=== PATIENT | male | born 1955 | race Native Hawaiian/Other Pacific Islander ===

== ENCOUNTER 2018-07-07 08:41 | Day surgery (SDC) | payer BC ==
[~2018-07-07 08:41] MED LIST: Buffered Lidocaine 0.9% SYRIN* 5 ML/SYR SYRINGE INTRADERM ONE
[2018-07-07] MEDS ORDERED: Midazolam* 1 MG/ML 2 ML VIAL (2 MG) ONE (10:03)
[2018-07-07] MEDS ORDERED: hydrALAZINE IV* 20 MG/ML VIAL ONE (10:22)
[2018-07-07 10:36] VITALS: BP 130/87
[2018-07-07] MEDS ORDERED: Tetracaine 0.5% OPTH.SOL 4 ML* 1 DROP BTL ONE (11:28)
[2018-07-07] MEDS ORDERED: acetaZOLAMIDE TAB* 250 MG ONE (11:28)
[2018-07-07] MEDS ORDERED: Lidocaine 1%* 5 ML VIAL ONE (11:28)
[2018-07-07] MEDS ORDERED: Cyclopentolate 1% OPTH.SOL* 2 ML BTL ONE (11:28)
[2018-07-07] MEDS ORDERED: Tropicamide 1% OPTH.SOL* BTL ONE (11:28)
[2018-07-07] MEDS ORDERED: Povidone Iodine 5% OPTH* 30 ML BTL ONE (11:28)
[2018-07-07] MEDS ORDERED: Neomycin/Polymy/Dex OPHTH.OIN* 3.5 GM ONE (11:28)
[2018-07-07] MEDS ORDERED: Ketorolac 0.5% OPHTH (NF) 0.5 % 5 ML BTL ONE (11:28)
--- NOTE | 2018-07-07 11:35 | OP ---
DATE OF OPERATION: 07/07/2018 - [facility] DATE OF : 1955. SURGEON: Dwayne Schroeder MD ANESTHESIA: Monitored anesthesia care. PREOPERATIVE DIAGNOSIS: Cataract, left eye. POSTOPERATIVE DIAGNOSIS: Cataract, left eye. OPERATIVE PROCEDURE: Extracapsular cataract extraction of the left eye with intraocular lens implant. IMPLANT: SN60WF 17.0 diopter lens to the left eye. COMPLICATIONS: None. DESCRIPTION OF PROCEDURE: The patient was given phenylephrine 2.5 % and cyclopentolate 1% eye drops to the operative eye in the preoperative area. The patient was taken to the operating room where a time-out was taken to identify the correct patient, site, and side of surgery. The patient's left eye was prepped and draped in the usual sterile fashion with 5% Betadine. A second time- out was taken to verify the correct patient, side, and site of surgery, as well as the correct lens implant. A lid speculum was placed to the left eye. A 1mm paracentesis blade was used to make a clear corneal incision. Preservative-free 1% lidocaine was injected into the anterior chamber. DisCoVisc was then injected into the anterior chamber. A 2.75 mm keratome blade was used to make a triplanar incision. A cystotome initiated a capsulorrhexis, which was completed with Utrata forceps in a continuous and curvilinear manner. Hydrodissection of the lens was performed with BSS on a cannula. The lens could be spun in a capsular bag. The phacoemulsification handpiece was used with a divide-and- conquer technique to remove the nucleus. The I/A handpiece then removed the residual cortical lens material. DisCoVisc was injected to inflate the capsular bag. The planned SN60WF 17.0 diopter lens was injected into the capsular bag. The residual DisCoVisc was removed from the eye with the I/A handpiece. The corneal incisions were hydrated and no leaks occurred at physiologic pressure around 20 mmHg per palpation. The lid speculum was removed and drapes were removed. Maxitrol ointment was placed to the surface of the operative eye. An adhesive patch and shield was then placed on the operative eye. The patient was taken to the postoperative area in stable condition. [id number]/[facility] #: [id number] [facility] [place]
== END 2018-07-07 10:39 | disposition home or self-care (01) ==
LOC: OREAST 08:41
PROVIDERS: ATTEND Student in an Organized Health Care Education/Training Program
DX: H25.12 Age-related nuclear cataract, left eye (principal); K21.9 Gastro-esophageal reflux disease without esophagitis; J30.9 Allergic rhinitis, unspecified; N40.0 Benign prostatic hyperplasia without lower urinary tract symptoms; I10 Essential (primary) hypertension
CPT/HCPCS: A9270-GY; J0360; J2250; V2632

== ENCOUNTER → 2018-07-14 08:32 | Day surgery (SDC) | payer BC ==
[~2018-07-14 08:32] MED LIST changes: +Acetaminophen TAB* 325 MG PO PRN; -Buffered Lidocaine 0.9% SYRIN* 5 ML/SYR SYRINGE INTRADERM ONE; +Cyclopentolate 1% OPTH.SOL* 2 ML BTL ONE; +Ketorolac 0.5% OPHTH (NF) 0.5 % 5 ML BTL ONE; +Lidocaine 1%* 5 ML VIAL ONE; +Midazolam* 1 MG/ML 5 ML VIAL (5 MG) ONE; +Neomycin/Polymy/Dex OPHTH.OIN* 3.5 GM ONE; +Povidone Iodine 5% OPTH* 30 ML BTL ONE; +Tetracaine 0.5% OPTH.SOL 4 ML* 1 DROP BTL ONE; +Tropicamide 1% OPTH.SOL* BTL ONE; +acetaZOLAMIDE TAB* 250 MG ONE
[2018-07-14 10:44] VITALS: BP 134/92
--- NOTE | 2018-07-14 12:41 | OP ---
DATE OF OPERATION: 07/14/2018 - LOCATED WITHIN [facility] DATE OF : 1955. SURGEON: Dwayne Schroeder MD ANESTHESIA: Monitored anesthesia care. PREOPERATIVE DIAGNOSIS: Cataract, right eye. POSTOPERATIVE DIAGNOSIS: Cataract, right eye. OPERATIVE PROCEDURE: Extracapsular cataract extraction of the right eye with intraocular lens implant. IMPLANT: SN60WF 15.0 diopter lens to the right eye. COMPLICATIONS: None. DESCRIPTION OF PROCEDURE: The patient was given phenylephrine 2.5 % and cyclopentolate 1% eye drops to the operative eye in the preoperative area. The patient was taken to the operating room where a time-out was taken to identify the correct patient, site, and side of surgery. The patient's right eye was prepped and draped in the usual sterile fashion with 5% Betadine. A second time- out was taken to verify the correct patient, side, and site of surgery, as well as the correct lens implant. A lid speculum was placed to the right eye. A 1mm paracentesis blade was used to make a clear corneal incision. Preservative-free 1% lidocaine was injected into the anterior chamber. DisCoVisc was then injected into the anterior chamber. A 2.75 mm keratome blade was used to make a triplanar incision. A cystotome initiated a capsulorrhexis, which was completed with Utrata forceps in a continuous and curvilinear manner. Hydrodissection of the lens was performed with BSS on a cannula. The lens could be spun in a capsular bag. The phacoemulsification handpiece was used with a divide-and- conquer technique to remove the nucleus. The I/A handpiece then removed the residual cortical lens material. DisCoVisc was injected to inflate the capsular bag. The planned SN60WF 15.0 diopter lens was injected into the capsular bag. The residual DisCoVisc was removed from the eye with the I/A handpiece. The corneal incisions were hydrated and no leaks occurred at physiologic pressure around 20 mmHg per palpation. The lid speculum was removed and drapes were removed. Maxitrol ointment was placed to the surface of the operative eye. An adhesive patch and shield was then placed on the operative eye. The patient was taken to the postoperative area in stable condition. [id number]/[facility] #: [id number] [facility]
== END | disposition home or self-care (01) ==
LOC: OREAST 08:32
PROVIDERS: ATTEND Student in an Organized Health Care Education/Training Program
DX: H25.11 Age-related nuclear cataract, right eye (principal); J30.2 Other seasonal allergic rhinitis; K21.9 Gastro-esophageal reflux disease without esophagitis; I10 Essential (primary) hypertension
CPT/HCPCS: A9270-GY; J2250; V2632

== ENCOUNTER 2018-08-28 08:40 | Emergency (ER) | payer BC ==
--- OUTSIDE RECORDS SUMMARY | 2018-08-28 08:44 | XMS REPORT | Continuity of Care Document ---
:1955 External Reference #:[id number] Author Name Dwayne Schroeder M.D. Address [address] [place] [address] Care Team Providers Name Role Phone Ace Carlisle M.D. Primary Care Physician Unavailable Payers Date Identification Numbers Payment Provider Subscriber Policy Number: [id number] Luther Swift PayID: [id number] [address] [place] [address] Advance Directives Description No Information Available Problems Date Description Provider Status Onset: Allergy to tree pollen Active Onset: Dust allergy Active Onset: House dust mite allergy Active Onset: Allergy to cat dander Active Onset: Allergy to dog dander Active Onset: Allergy to mold Active Onset: Gastroesophageal reflux disease Active Onset: 07/08/2018 Presence of intraocular lens Dwayne Schroeder M.D. Active Onset: 06/05/2017 Nuclear senile cataract Prema Simons O.D. Active Onset: 06/11/2016 Presbyopia Prema iSmons O.D. Active Onset: 06/11/2016 Regular astigmatism Prema Simons O.D. Active Onset: 06/11/2016 Myopia Prema Simons O.D. Active Onset: 03/24/2015 Ocular hypertension Prema Simons O.D. Active Onset: 11/08/2014 Vitreous degeneration Prema K. Ronak, O.D. 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 ETOH Use Denies alcohol use Tobacco Use Start: Unknown Patient has never smoked Recreational Drug Use Denies Drug Use Smoking Status Reviewed: 08/12/18 Patient has never smoked Allergies, Adverse Reactions, Alerts Date Description Reaction Status Severity Comments 11/05/2014 Trusopt Active rash 11/05/2014 Penicillins Active 11/08/2014 Trees Active 11/08/2014 Dust Mites Active 11/08/2014 Cats Active 11/08/2014 Dogs Active 11/08/2014 Mold Active Medications Medication Date Status Form Strength Qnty SIG Indications Ordering Provider Prednisolone 07/29/ Active Suspension 1% 5ml 1 drop Dwayne Acetate 2019 three Zablocki, times a M.D. day left eye Betamethasone / Active Lotion 0.1% Unknown Valerate 0000 Omeprazole / Active Capsules DR 20mg Unknown 0000 Multivitamins / Active Capsules Unknown 0000 Vitamin B 12 / Active Lozenges 100mcg Unknown 0000 Vitamin E / Active Capsules 100Unit Unknown 0000 Vitamin C / Active Capsules 500mg 2 tab by Unknown 0000 mouth every day Desloratadine / Active Tablets 5mg Unknown 0000 Azelastine HCL / Active Solution 0.15% Unknown (Nasal) 0000 Glucosamine / Active Capsules 1500Com Unknown Chondroitin 0000 1500 Complex Allergy / Active b2epvsb Unknown Injections 0000 Fish Oil / Active Capsules 1000mg 1 by Unknown 0000 mouth every day Vigamox 07/02/ Hx Solution 0.5% 3ml 1 drop Dwayne 2019 - right eye Zablocki, 07/23/ 3 times M.D. 2019 daily Ketorolac 07/02/ Hx Solution 0.5% 10ml 1 drop Dwayne Tromethamine 2019 - right eye Zablocki, 3 times M.D. 2019 daily 1 drop left eye 2 times daily Prednisolone 07/02/ Hx Suspension 1% 10ml 1 drop Dwayne Acetate 2019 - right eye Zablocki, 07/21/ 3 times M.D. 2019 daily 1 drop left eye 2 times daily Allergy 03/24/ Hx Tablets ER 10-240mg Generic Prema K. Relief/Nasal 2015 - 24HR For [place], Decongestant 07/14/ Clerinex O.D. 2018 Fish Oil 11/05/ Hx Capsules 1000mg 1 by Prema Celaya 2015 - mouth [place], 07/14/ every day O.D. 2018 Montelukast / Hx Tablets 10mg Unknown Sodium 0000 - 2014 Artificial / Hx Solution 0.2-0.2-1% as needed Dwayne Tears 0000 - Zablocki, 07/13/ M.DBubba 2019 Medications Administered in Office Medication Date Status Form Strength Qnty SIG Indications Ordering Provider Crizal Administered Injection Jacques 2 Rankin, A.B.O. Immunizations Description No Information Available Vital Signs Description No Information Available Results Description No Information Available Procedures Date Code Description Status 07/14/2018 16631 Extracapsular Cataract Extraction W/Intraocular Lens Completed 07/07/2018 87614 Extracapsular Cataract Extraction W/Intraocular Lens Completed 07/02/2018 05835 Ophthalmic Biometry Completed 07/02/2018 69995 Ophthalmic Biometry Completed 07/02/2018 29081 Est Patient Intermediate Exam Completed 06/11/2018 52411 Est Patient Comprehensive Exam Completed 06/06/2018 28272 Scanning Computerized Ophthalmic Diagnostic Imag Posterior Completed Seg On 06/06/2018 03834 Visual Field Exam Extended Completed 06/06/2018 02104 Est Patient Comprehensive Exam Completed 12/04/2017 89070 Est Patient Comprehensive Exam Completed 06/05/2017 20210 Est Patient Comprehensive Exam Completed 06/05/2017 61916 Determination Of Refractive State Completed 06/05/2017 26266 Visual Field Exam Extended Completed 06/05/2017 62975 Scanning Computerized Ophthalmic Diagnostic Imag Posterior Completed Seg On 12/04/2016 83120 Est Patient Intermediate Exam Completed 06/11/2016 09636 Determination Of Refractive State Completed 06/07/2016 15851 Scanning Computerized Ophthalmic Diagnostic Imag Posterior Completed Seg On 06/07/2016 29056 Visual Field Exam Extended Completed 06/07/2016 12929 Est Patient Comprehensive Exam Completed 12/06/2015 90103 Est Patient Intermediate Exam Completed 06/01/2015 74283 Visual Field Exam Extended Completed 06/01/2015 03655 Est Patient Intermediate Exam Completed 03/24/2015 07516 Est Patient Comprehensive Exam Completed 10/07/2014 43611 Scanning Computerized Opthalmic Diagnostic Posterior Seg Completed Retina 10/07/2014 46661 Est Patient Comprehensive Exam Completed 03/18/2014 39306 Pachymetry Completed 03/18/2014 19482 Est Patient Intermediate Exam Completed 03/18/2014 21667 Determination Of Refractive State Completed 03/18/2014 31623 Visual Field Exam Extended Completed 02/15/2014 00462 Scanning Computerized Ophthalmic Diagnostic Imag Posterior Completed Seg On 02/15/2014 21556 Est Patient Comprehensive Exam Completed 04/29/2013 85173 Est Patient Comprehensive Exam Completed 04/29/2012 36759 Determination Of Refractive State Completed 04/29/2012 43767 Est Patient Comprehensive Exam Completed 04/24/2011 70293 Determination Of Refractive State Completed 04/24/2011 29157 Est Patient Comprehensive Exam Completed 04/20/2010 56546 Determination Of Refractive State Completed 10/19/2009 98537 Est Patient Comprehensive Exam Completed 10/19/2009 68402 Determination Of Refractive State Completed 10/19/2009 41667 Visual Field Exam Extended Completed 10/14/2008 94376 Fundus Photography With Interpretation And Report Completed 10/14/2008 01414 Determination Of Refractive State Completed 10/14/2008 40072 Est Patient Comprehensive Exam Completed 10/02/2007 99049 Determination Of Refractive State Completed 10/02/2007 35699 Est Patient Comprehensive Exam Completed 10/03/2006 15356 Determination Of Refractive State Completed 10/03/2006 10386 Est Patient Comprehensive Exam Completed 09/06/2005 98521 Determination Of Refractive State Completed 09/06/2005 43676 Est Patient Comprehensive Exam Completed 07/26/2004 98926 Determination Of Refractive State Completed 07/26/2004 27945 Est Patient Intermediate Exam Completed 06/04/2002 113 Crizal Completed Encounters Type Date Location Provider Dx Diagnosis Office Visit 11/08/2014 Prema Juarez, 379.21 Vitreous Degeneration 8:30a iman BAINS.Fay. Office Visit 02/04/2014 Prema Juarez, 372.14 Allergic 8:45a iman BAINS O.D. Conjunctivitis Office Visit 02/01/2014 Prema Juarez, 372.14 Allergic 3:00p iman BAINS O.D. Conjunctivitis 372.72 Conjunctival Hemorrhage Office Visit 04/20/2010 8:15a Harrison Colin, 365.04 Ocular Hypertension MD July, pc M.D. Plan of Treatment 08/12/2018 - Dwayne Schroeder M.D.Z96.1 Presence of intraocular lensComments: Smoking can increase the risk of developing or worsening any eye related disease , as well as affect your overall health. If you are a smoker, we strongly recommend that you quit.If you are not a smoker, we strongly recommend that you do not start. The artificial lens implants in both eyes appear to be stable at this time. USE THE PREDNISOLONE 2 TIMES A DAY TO THE LEFT EYE FOR 1 WEEKTHEN DECREASETO ONCE A DAY TO THE LEFT EYE FOR 1 WEEK. THEN STOPFollow up:6MONTHS IOP CHECK At your next visit, we are not planning to dilate your eyes. However, if you have any changes in your vision or new symptoms, there are certain situations that require us to dilate your eyes. If Dr. Schroeder requests any additional testing, that may require extra time. If youhave any questions before your next appointment, please call our office at [phone].
[2018-08-28 08:54] VITALS: BP 157/113
--- NOTE | 2018-08-28 09:35 | UC ---
Upper Extremity HPI - HPI Summary HPI Summary: Pt presents with right elbow and shoulder pain and stiffness. pt slipped and fell on ice yesterday at noon. Landed on right arm. No open wound. little discomfort yesterday, progressive since. No strike head. no loc. no neck or back injury. RHD. no paresthesia. Pain with extension elbow. + applied ice. No analgesia. Pt's medicatoins reviewed this visit - History of Current Complaint Chief Complaint: UCUpperExtremity Stated Complaint: ARM INJURY Time Seen by Provider: 08/28/18 08:59 Hx Obtained From: Patient Onset/Duration: Gradual Onset Severity Initially: Moderate Pain Intensity: 4 - Allergies/Home Medications Allergies/Adverse Reactions: Allergies Allergy/AdvReac Type Severity Reaction Status Date / Time lanolin Allergy Rash Verified 08/28/18 08:45 Penicillins Allergy Rash Verified 08/28/18 08:45 lactose AdvReac INTOLERANCE Verified 08/28/18 08:45 PMH/Surg Hx/FS Hx/Imm Hx Previously Healthy: Yes - Surgical History Surgical History: Yes Surgery Procedure, Year, and Place: WISDOM TEETH EXTRACTED- LOCAL ANESTHESIA. COLNOSCOPY X 2 - SEDATION. bilat. cataracts Jul 2018 - Family History Known Family History: Positive: Non-Contributory - Social History Occupation: Employed Full-time Lives: With Family Alcohol Use: None Substance Use Type: None Smoking Status (MU): Never Smoked Tobacco Have You Smoked in the Last Year: No Review of Systems All Other Systems Reviewed And Are Negative: Yes Constitutional: Positive: Negative Skin: Positive: Negative Musculoskeletal: Positive: Other: - right elbow Physical Exam - Summary Physical Exam Summary: Vital Signs Reviewed: Yes A+Ox3, no distress Eyes: Conjunctiva Clear, ENT: Hearing grossly normal Neck: Positive: Supple Respiratory: Positive: No respiratory distress, No accessory muscle use Cardiovascular: 2+ radial, 2+ ulna, CBT< 2 sec Musculoskeletal Exam: No pain c/t/l/s + discomfort anterior shoulder with full extension, mild TTP anterior margin of prox humerus + discomfort with full extension of elbow + full full flexion, pain posterior elbow with pronation/supination + flex/ext wriist no focal pain with palpation of elbow Neurological: Positive: Alert, + sensation throughout+ thumb up, a ok, finger cross, finger spread Psychological: Positive: Normal Response To Family Skin: Positive: no rash, no ecchymosis, no open wounds, abraison Triage Information Reviewed: Yes Vital Signs: Initial Vital Signs Temp 97.2 F 08/28/18 08:48 Pulse 111 08/28/18 08:48 Resp 18 08/28/18 08:48 BP 157/113 08/28/18 08:48 Pulse Ox 97 08/28/18 08:48 Procedures - Splinting Right Upper Extremity Location: right elbow- applied by me Hand-Made Type: orthoglass Splint: posterior Pre-Proc Neuro Vasc Exam: normal Post-Proc Neuro Vasc Exam: normal Diagnostics - Radiology No standard instances Radiology Interpretation Completed By: Radiologist - Patient Name: HAKAN CHILDRESS Medical Record#: [id number] Ordering Physician: Jamia Schmidt MD Acct.#: [id number] : 1955 Age: 63 Sex: M Location: [facility] Exam Date: 08/28/18939 ADM Status: REG ER Order Information: ELBOW RIGHT 3 + VWS Accession Number: [id number] CPT: 91745 HISTORY: fall, right shoulder, elbow pain . COMPARISONS: None VIEWS: 4, Frontal, lateral, and oblique views of the right shoulder FINDINGS: BONE DENSITY: Normal. BONES: There is no displaced fracture. 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 There is a small posterior supracondylar fat pad consistent with joint effusion. ALIGNMENT: There is no dislocation. SOFT TISSUES: Unremarkable. OTHER FINDINGS: None. IMPRESSION: WHILE THERE IS NO DISPLACED FRACTURE, THERE IS A SMALL JOINT EFFUSION WHICH MAY INDICATE THE PRESENCE OF OCCULT FRACTURE. <Electronically signed by Camilo Carrizales MD in OV> 08/28/18 1020 Dictated By: Camilo Carrizales MD Dictated Date/Time: 08/28/18 1020 Transcribed Date/ Time: 08/28/18 1019 Copy to: CC:Ace Carlisle MD; Jamia Schmidt MD Imaging - [facility] Imaging [facility] [address] [address] [place], [place] [id number] [place] [address] ph ([phone]) ph ([phone]) ph ([phone]) This report is only to be considered final once signed by the Provider(s ) as displayed in the "<Electronically Signed by >" field (s). Absence of a signature indicates the report is in a draft status and still needs to be finalized. In the event this document was created by someone other than the signing Provider, the individual initiating the document will be listed in the "Entered by:" or "Dictated by:" gipson. 1 of 1 Upper Extremity Course/Dx - Course Course Of Treatment: Pt with pain with full extension and abduction right shoulder and elbow s/p fall yesterday. no other areas of injury. distal cSM intact. pt with discomfort with ROM. reviewed imaging. posterior UE splint placed by me. sling. motrin/apap. ice. f/u with ortho. elevated BP -pt in discomfort - f/u with pcp - Differential Dx/Diagnosis Provider Diagnosis: Injury of right elbow Discharge - Sign-Out/Discharge Documenting (check all that apply): Patient Departure All imaging exams completed and their final reports reviewed: Yes - Discharge Plan Condition: Stable Disposition: HOME Patient Education Materials: Contusion in Adults (ED), Elbow Sprain (ED), Swollen Joint (ED) Referrals: Ace Carlisle MD [Primary Care Provider] - Jesus Hanna MD [Medical Doctor] - Additional Instructions: -wear sling for comfort and support. relax your shoulder so the sling holds the weight of your shoulder - Leave splint in place until you are evaluated in follow-up -apply ice (20 min at a time) every 2-3 hours for the next 2 days --Okay to alternate ibuprofen (Advil, Motrin) and Tylenol every 3 hours for pain. Take with food. Do NOT take for more than 4-5 days. -Contact the orthopedic provider today to schedule a follow-up appointment next available - Billing Disposition and Condition Condition: STABLE Disposition: Home
== END 2018-08-28 10:45 | disposition home or self-care (01) ==
LOC: UCEAST 08:40
DX: S59.901A Unspecified injury of right elbow, initial encounter (principal); M25.511 Pain in right shoulder; M19.011 Primary osteoarthritis, right shoulder; W00.0XXA Fall on same level due to ice and snow, initial encounter; Y92.9 Unspecified place or not applicable
CPT/HCPCS: 99212; G0463